=== PATIENT | female | born 1950 | race African-American/Black ===

== ENCOUNTER 2023-06-27 16:12 | Emergency (ER) | payer OTHER, MEDICAID ==
[~2023-06-27] VITALS: Ht 162.6 cm; Wt 77.0 kg
[~2023-06-27 16:12] MED LIST: ATORVASTATIN CA20 MG PO; CEPHALEXIN500 M1 PO; GABAPENTIN100 MG PO; GLIPIZIDE5 MG PO; IBUPROFEN600 MG PO; LISINOPRIL10 MG PO
[2023-06-27 16:44] VITALS: BP 176/102
[2023-06-27 17:43] LABS: URINE BILIRUBIN - DIPSTICK Negative (NEGATIVE); URINE BLOOD DIPSTICK Trace-lysed (NEGATIVE); URINE GLUCOSE - DIPSTICK 500 mg/dL (NEGATIVE); URINE KETONE Trace mg/dL (NEGATIVE); URINE NITRITE - DIPSTICK Negative (Negative); URINE PROTEIN - DIPSTICK Negative (NEG-TRACE); URINE SPECIFIC GRAVITY 1.025; URINE UROBILINOGEN - DIPSTICK 0.2 E.U./dL (0.2)
[2023-06-27 17:44] LABS: URINE COLOR Yellow; URINE LEUK ESTERASE Small (NEGATIVE)
[2023-06-27 17:52] LABS: URINE CALCIUM OXALATE CRYSTALS MANY lpf; URINE RBC 0-2 RBC/hpf (0-5)
[2023-06-27] MEDS ORDERED: MACROBID100 M1 PO ×2 (18:03→18:14)
[2023-06-27] MEDS ORDERED: DIFLUCAN150 MG PO ×2 (18:06→18:14)
[2023-06-27 18:15] VITALS: BP 176/102
== END 2023-06-27 18:33 | disposition home or self-care (01) | DRG 690 ==
LOC: ED 16:12
PROVIDERS: Nurse Practitioner
DX: N39.0 Urinary tract infection, site not specified (principal); I10 Essential (primary) hypertension; E11.9 Type 2 diabetes mellitus without complications; Z79.84 Long term (current) use of oral hypoglycemic drugs